=== PATIENT | male | born 1975 | race Caucasian/White ===

== ENCOUNTER 2018-08-24 18:40 | Emergency (ER) | payer SELFPAY ==
[~2018-08-24] VITALS: Ht 170.2 cm; Wt 95.4 kg
[2018-08-24 18:42] VITALS: Ht 170.2 cm; Wt 95.4 kg
[2018-08-24] MEDS ORDERED: morphine 4 MG/ML VIAL IV STA (22:34)
[2018-08-24] MEDS ORDERED: SOD CHLORIDE 0.9% 1,000 ML IV STA (22:34)
[2018-08-24] MEDS ORDERED: ONDANSETRON 4 MG INJ IV STA (22:34)
--- NOTE | 2018-08-24 22:42 | ERD ---
ER Documentation Chief Complaint Chief Complaint EPIGASTRIC PAIN RADIATING TO BACK X'S 3 DAYS HPI This is a 43-year-old male with a history of alcohol abuse. The patient indicates he has not consumed any alcohol for the past 72 hours. He indicates at that time he developed severe epigastric pain. The pain was 10 out of 10 intensity. The pain radiates to his back. The patient states he is never had any similar pain in the past. He is felt nauseous but has not experienced any emesis. He denies any hemoptysis hematemesis or melanotic stools. He denies any lower back pain or lower abdominal pain. The pain is worse when he leans forward and better when he lies supine. He has no chest pain. He has no shortness of breath. He denies any illicit drug use. He denies any history of alcohol withdrawal seizures. He denies any palpitations or tremors ROS All systems reviewed and are negative except as per history of present illness. Medications Home Meds Active Scripts Famotidine* (Pepcid*) 20 Mg Tablet, 20 MG PO BID for 10 Days, TAB Prov:JEN PARISI MD 08/24/18 Ondansetron (Ondansetron Odt) 4 Mg Tab.rapdis, 4 MG PO Q6H PRN for NAUSEA AND/OR VOMITING, #10 TAB Prov:JEN PARISI MD 08/24/18 Allergies Allergies: Coded Allergies: No Known Allergy (Unverified , 08/09/13) PMhx/Soc History of Surgery: No Anesthesia Reaction: No Hx Neurological Disorder: No Hx Respiratory Disorders: No Hx Cardiac Disorders: No Hx Psychiatric Problems: No Hx Miscellaneous Medical Probl: Yes (DX: LOWER EXTREMITY CELLULITIS) Hx Alcohol Use: No Hx Substance Use: No Hx Tobacco Use: Yes Physical Exam Vitals Vital Signs Date Temp Pulse Resp B/P (MAP) Pulse Ox O2 O2 Flow FiO2 Time Delivery Rate 08/24/18 98.3 89 20 159/88 97 18:42 (111) Physical Exam Constitutional:Well-developed. Well-nourished. Patient appears to be in a significant amount discomfort secondary to pain HEENT:Normocephalic. Atraumatic.Pupils were equal round reactive to light. Moist mucous membranes.No tonsillar exudates. Neck: No nuchal rigidity. No lymphadenopathy. No posterior cervical spine tenderness or step-offs. Respiratory: Not using accessory muscles of respiration.Lungs were clear to auscultation bilaterally. No rhonchi. No rales. No wheezing. Cardiovascular: Regular rate regular rhythm.No murmurs. No rubs were appreciated .S1, S2 normal. Distal pulses are palpable 2+ bilaterally. GI: Abdomen was soft. Epigastric tenderness and tenderness in the right upper quadrant. Negative Knapp sign. Non Distended. No pulsatile abdominal masses or bruits. No rebound. No guarding. Bowel sounds were present and normal. Muscle skeletal: Full range of motion of both the upper and lower extremities bilaterally.Normal muscle tone.No assymetrical calf tenderness or swelling. Skin: No petechia, no purpura. No lesions on the palms or the soles of the feet. No maculopapular rash. NEURO: Patient was alert, awake, orientated x3.No facial droop. Gait observed and normal with no ataxia.Speech had regular rate and rhythm. No focal neurological deficits. Result Diagram: 08/24/18223908/24/180 Results 24 hrs Laboratory Tests Test 08/24/18 22:40 White Blood Count 9.0 10^3/ul Red Blood Count 5.15 10^6/ul Hemoglobin 16.0 g/dl Hematocrit 45.8 % Mean Corpuscular Volume 88.9 fl Mean Corpuscular Hemoglobin 31.1 pg Mean Corpuscular Hemoglobin Concent 34.9 g/dl Red Cell Distribution Width 12.6 % Platelet Count 189 10^3/UL Mean Platelet Volume 10.9 fl Immature Granulocytes % 0.400 % Neutrophils % 61.1 % Lymphocytes % 24.9 % Monocytes % 10.4 % Eosinophils % 2.8 % Basophils % 0.4 % Nucleated Red Blood Cells % 0.0 /100WBC Immature Granulocytes # 0.040 10^3/ul Neutrophils # 5.5 10^3/ul Lymphocytes # 2.3 10^3/ul Monocytes # 0.9 10^3/ul Eosinophils # 0.3 10^3/ul Basophils # 0.0 10^3/ul Nucleated Red Blood Cells # 0.0 10^3/ul Prothrombin Time 13.4 Sec Prothrombin Time Ratio 1.0 INR International Normalized Ratio 1.01 Activated Partial Thromboplast Time 29.2 Sec Sodium Level 140 mmol/L Potassium Level 4.1 mmol/L Chloride Level 102 mmol/L Carbon Dioxide Level 28 mmol/L Anion Gap 10 Blood Urea Nitrogen 18 mg/dl Creatinine 0.78 mg/dl Est Glomerular Filtrat Rate mL/min > 60 mL/min Glucose Level 118 mg/dl Calcium Level 9.6 mg/dl Total Bilirubin 0.9 mg/dl Direct Bilirubin 0.00 mg/dl Indirect Bilirubin 0.9 mg/dl Aspartate Amino Transf (AST/SGOT) 89 IU/L Alanine Aminotransferase (ALT/SGPT) 99 IU/L Alkaline Phosphatase 110 IU/L Troponin I < 0.012 ng/ml Total Protein 8.2 g/dl Albumin 4.5 g/dl Globulin 3.70 g/dl Albumin/Globulin Ratio 1.21 Amylase Level 108 U/L Lipase 72 U/L Current Medications Medications Dose Sig/Sanjay Start Time Status Last (Trade) Ordered Route PRN Stop Time Admin Dose Reason Admin Sodium 1,000 ml @ Q1H STAT 08/24/18 DC 08/24/18 Chloride 1,000 mls/hr IV 22:34 08/24/18 22:53 23:33 Morphine 4 mg ONCE STAT 08/24/18 DC 08/24/18 Sulfate IV 22:34 08/24/18 22:53 (morphine) 22:35 Ondansetron 4 mg ONCE STAT 08/24/18 DC 08/24/18 HCl (Zofran IV 22:34 08/24/18 22:54 Inj) 22:35 40 ml ONCE STAT 08/24/18 DC Miscellaneous PO 23:39 08/24/18 Medication 23:40 (Gi Cocktail (2)) Belladonna/ 2 tab ONCE STAT 08/24/18 DC Phenobarbital PO 23:39 08/24/18 () 23:40 Procedures/MDM The patient presented to the emergency department with epigastric pain. My differential diagnosis included but was not limited to abdominal aortic aneurysm, choledocholithiasis, gallstone ileus, renal colic, pyelonephritis, p ancreatitis, peptic ulcer disease, atypical myocardical infarction, mesenteric ischemia, GERD, pulmonary infarction. The patient was placed on a cardiac monitor technician, continuous pulse oximetry and IV access was established by nursing staff. An EKG was obtained to rule out myocardial ischemia. There was mild elevation of LFTs however my suspicion was low for ductal obstruction, cholangitis, cholecys tiitis or hepatitis. Ultrasound of the gallbladder showed no CBD thickening or stones present within the gallbladder 12 Lead EKG tracing ordered and reviewed by myself showed: Normal sinus rhythm of 88 bpm and no arrhythmia. SC interval normal. QRS duration normal. No ST segment elevation. Incomplete right bundle branch block No ST segment depression. No changes consistent with acute ischemia. The patient had no elevation of his pancreatic liver enzymes. I did feel symptoms could be result of alcoholic gastritis. He showed no signs of alcohol withdrawal. His pain improved with analgesic medication IV fluids and a GI cocktail. The patient was discharged home in fair condition. They were instructed to return to the emergency department at any time if there was any worsening of their condition. The patient stated they would follow up with their PCP in the next 24-48 hours to initiate a suitable medication regimen under the care of their PCP as well as to allow their PCP to monitor any drug reactions. The patient was discharged home with prescriptions after they gave informed co nsent to the new medication. They were also fully informed by myself on the adverse effects and adverse drug interactions in order to provide adequate safeguards to prevent possible adverse reactions to medications. Departure Diagnosis: Primary Impression: Epigastric pain Condition: JEN Tian MD Aug 24, 2018 22:42
[2018-08-24] MEDS ORDERED: LIDOCAINE/MYLANTA 40 ML BTL PO STA (23:39)
[2018-08-24] MEDS ORDERED: BELLADONNA/PHENOBARBITAL TAB PO STA (23:39)
[2018-08-24] MEDS ORDERED: FAMO-96 PO (23:43)
[2018-08-24] MEDS ORDERED: ONDA4TAB14 PO (23:43)
[2018-08-25] MEDS ORDERED: LORAZEPAM 2 MG INJ IV ONE
[2018-08-25 00:30] VITALS: BP 134/84; PULSE 63; RESP 19
== END 2018-08-25 00:58 | disposition home or self-care (01) ==
LOC: E/R 18:40
DX: R10.13 Epigastric pain (principal); R11.0 Nausea; Z87.891 Personal history of nicotine dependence
CPT/HCPCS: 76705; 80053; 82150; 83690; 84484; 85025; 85610; 85730; 93005; 96374; 99285; J2270; J2405; J7030

== ENCOUNTER 2018-09-15 16:36 | Emergency (ER) | payer SELFPAY ==
[~2018-09-15] VITALS: Ht 170.2 cm; Wt 96.0 kg
[~2018-09-15 16:36] MED LIST: FAMO-96 PO; ONDA4TAB14 PO; RANI150T35 PO
[2018-09-15 17:22] VITALS: BP 178/94; PULSE 78; RESP 16; Ht 170.2 cm; Wt 96.0 kg
[2018-09-15] MEDS ORDERED: SOD CHLORIDE 0.9% 1,000 ML IV STA (18:15)
[2018-09-15] MEDS ORDERED: morphine 4 MG/ML VIAL IV STA (18:15)
[2018-09-15] MEDS ORDERED: ONDANSETRON 4 MG INJ IV STA (18:15)
[2018-09-15] MEDS ORDERED: LIDOCAINE/MYLANTA 40 ML BTL PO ONE (20:00)
--- NOTE | 2018-09-16 17:04 | ERD ---
ER Documentation Chief Complaint Chief Complaint mid epigastric pain that radiates to back x 2 days HPI 43yo M presents with complaint of epigastric pain radiating to the back and chest x 2 days. Pt notes a hx of gastritis and believes pain d/t gastritis. Pt also notes to have consumed 8 beers prior to onset of pain, and notes hx of etoh. He denies vomiting, nausea, fever, chills, SOB, or dizziness. Pt has taken 3 ibuprofen for pain without improvement. ROS All systems reviewed and are negative except as per history of present illness. Medications Home Meds Active Scripts Ranitidine Hcl* (Zantac*) 150 Mg Tablet, 150 MG PO BID PRN for EPIGASTRIC PAIN, #30 TAB Prov:LEXA TALBOT PA-C 09/15/18 Famotidine* (Pepcid*) 20 Mg Tablet, 20 MG PO BID for 10 Days, TAB Prov:JEN PARISI MD 08/24/18 Ondansetron (Ondansetron Odt) 4 Mg Tab.rapdis, 4 MG PO Q6H PRN for NAUSEA AND/OR VOMITING, #10 TAB Prov:JEN PARISI MD 08/24/18 Allergies Allergies: Coded Allergies: No Known Allergy (Unverified , 08/09/13) PMhx/Soc Medical and Surgical Hx: pt denies Surgical Hx History of Surgery: No Anesthesia Reaction: No Hx Neurological Disorder: No Hx Respiratory Disorders: No Hx Cardiac Disorders: No Hx Psychiatric Problems: No Hx Miscellaneous Medical Probl: Yes (DX: LOWER EXTREMITY CELLULITIS) Hx Alcohol Use: No Hx Substance Use: No Hx Tobacco Use: Yes Smoking Status: Never smoker FmHx Family History: No diabetes, No coronary disease, No other Physical Exam Vitals Vital Signs Date Temp Pulse Resp B/P (MAP) Pulse Ox O2 O2 Flow FiO2 Time Delivery Rate 09/15/18 97.9 78 16 178/94 97 17:22 (122) Physical Exam GENERAL: Alert and coherent. Well appearing, non-toxic. No acute distress. HEAD: Normocephalic, atraumatic. EYES: EOMI. PERRL. No conjunctival injection. No scleral icterus. No Discharge ENT: Nasal passages patent. Moist mucous membranes. No erythema or tonsillar exudates. NECK: Supple. Full range of motion. Trachea midline. No lymphadenopathy. RESPIRATORY: No tachypnea. Clear to auscultation bilaterally. No wheezing, rales or rhonchi. No accessory muscle use. CV: Regular rate and rhythm. No murmurs, rubs, or gallops. ABDOMEN: Soft, non-distended. TTP Epigastrum and RUQ, negative chacko sign. No RLQ tenderness, no mcburney point tenderness. No guarding. No rebound tenderness or rigidity. No masses. Positive bowel sounds in all four quadrants. BACK: Full ROM. No CVA tenderness. EXTREMITIES: No deformity. No clubbing, cyanosis or edema. SKIN: Warm and dry. No obvious rashes, erythema, or petechiae. NEUROLOGIC: Alert and oriented x3. Appropriate speech, mood and affect. Face is symmetric. Speech is normal. CN II-XII intact. Moves all extremities equally. Ambulates with a strong, steady gait Result Diagram: 09/15/187 09/15/18 1847 Results 24 hrs Laboratory Tests Test 09/15/18 18:47 White Blood Count 10.6 10^3/ul Red Blood Count 5.29 10^6/ul Hemoglobin 16.1 g/dl Hematocrit 47.5 % Mean Corpuscular Volume 89.8 fl Mean Corpuscular Hemoglobin 30.4 pg Mean Corpuscular Hemoglobin Concent 33.9 g/dl Red Cell Distribution Width 12.5 % Platelet Count 233 10^3/UL Mean Platelet Volume 11.1 fl Immature Granulocytes % 0.400 % Neutrophils % 62.7 % Lymphocytes % 25.0 % Monocytes % 9.3 % Eosinophils % 2.1 % Basophils % 0.5 % Nucleated Red Blood Cells % 0.0 /100WBC Immature Granulocytes # 0.040 10^3/ul Neutrophils # 6.6 10^3/ul Lymphocytes # 2.7 10^3/ul Monocytes # 1.0 10^3/ul Eosinophils # 0.2 10^3/ul Basophils # 0.1 10^3/ul Nucleated Red Blood Cells # 0.0 10^3/ul Prothrombin Time 12.6 Sec Prothrombin Time Ratio 1.0 INR International Normalized Ratio 0.93 Activated Partial Thromboplast Time 26.8 Sec Sodium Level 144 mmol/L Potassium Level 4.2 mmol/L Chloride Level 103 mmol/L Carbon Dioxide Level 30 mmol/L Anion Gap 11 Blood Urea Nitrogen 20 mg/dl Creatinine 0.92 mg/dl Est Glomerular Filtrat Rate mL/min > 60 mL/min Glucose Level 108 mg/dl Calcium Level 9.7 mg/dl Total Bilirubin 0.7 mg/dl Direct Bilirubin 0.00 mg/dl Indirect Bilirubin 0.7 mg/dl Aspartate Amino Transf (AST/SGOT) 75 IU/L Alanine Aminotransferase (ALT/SGPT) 87 IU/L Alkaline Phosphatase 113 IU/L Troponin I < 0.012 ng/ml Total Protein 8.6 g/dl Albumin 5.2 g/dl Globulin 3.40 g/dl Albumin/Globulin Ratio 1.52 Lipase 112 U/L Current Medications Medications Dose Sig/Sanjay Start Time Status Last (Trade) Ordered Route PRN Stop Time Admin Dose Reason Admin Sodium 1,000 ml @ Q1H STAT 09/15/18 DC 09/15/18 Chloride 1,000 mls/hr IV 18:15 18:51 09/15/18 19:14 Morphine 4 mg ONCE STAT 09/15/18 DC 09/15/18 Sulfate IV 18:15 18:51 (morphine) 09/15/18 18:18 Ondansetron 4 mg ONCE STAT 09/15/18 DC 09/15/18 HCl (Zofran IV 18:15 18:51 Inj) 09/15/18 18:18 40 ml ONCE ONCE 09/15/18 DC 09/15/18 Miscellaneous PO 20:00 20:07 Medication 09/15/18 20:04 (Gi Cocktail (2)) Procedures/MDM EKG: Signed by Dr. Velasquez Rate/Rhythm: Sinus Rhythm at a rate of 62 beats per minute QRS, ST, T-waves: No changes consistent w/ acute ischemia Impression: No evidence of ischemia or arrhythmia PROCEDURE: Chest x-ray FINDINGS: The heart is normal in size. The pulmonary vessels are normal in caliber. The lungs are clear. The costophrenic angles are sharp. The visualized bony thorax is unremarkable. IMPRESSION: No acute cardiopulmonary disease. PROCEDURE: Right upper quadrant ultrasound FINDINGS: The liver is increased in echogenicity and measures 19.5 cm. No focal hepatic masses are seen. The gallbladder is physiologically distended. There is no evidence of gallstones, gallbladder wall thickening, or pericholecystic fluid. The intra and extrahepatic bile ducts are normal in caliber. The common bile duct measures 4.4 mm. Pancreas is not visualized due to overlying bowel gas. Survey views of the right kidney demonstrate no evidence of hydronephrosis or renal calculi. The right kidney measures 11.7 cm. IMPRESSION: 1. No evidence of cholelithiasis or acute cholecystitis. 2. Fatty change of the liver. 3. Mild hepatomegaly MDM: 43yo M presents for evaluation of epigastric pain. VS noted. Patient had extensive evaluation, including laboratory and ancillary studies. Labs and ancillary tests were reviewed and no critical abnormalities were noted. Lipase WNL, mild elevation of LFTS. US Gallbladder showed fatty infiltrate of liver, but no gallbladder involvement. No evidence of infectious etiology, no evidence of metabolic derangement or electrolyte abnormalities. Low suspicion for appendicitis, bowel obstruction, viscous perforation, AAA or other serious surgical pathology. Doubt cardiac etiology. Low suspicion for pulmonary chloe ology. Symptoms likely consistent with gastritis. I have also counseled pt regarding etoh abuse. The patients condition improved during their stay after the administration of medications and serial evaluations with stable vital signs upon re-evaluation. Close PCP follow-up in 24 hours was reinforced and patient was told to return to ED promptly if symptoms are worse, vomiting, fever, other concerns. At this time pt stable for discharge and will receive a prescription to ranitidine, I have counseled regarding 8hr f/u if sx persist or worsen. Pt expressed verbal understanding and agreement to treatment plan. All questions addressed and answered. Departure Diagnosis: Primary Impression: Gastritis Gastritis type: unspecified gastritis Chronicity: unspecified Gastritis bleeding: presence of bleeding unspecified Qualified Codes: K29.70 - Gas tritis, unspecified, without bleeding Additional Impressions: H/O ETOH abuse Fatty liver Condition: Stable Patient Instructions: Non-Alcoholic Fatty Liver Disease (NAFLD), Gastritis (Adult) [facility] Usted se avila hecho un examen mdico de control que le indica que no est en beth condicin que requiera tratamiento urgente en el Departamento de Emergencia. Un estudio ms profundo y el tratamiento de cooper condicin pueden esperar sin ningn riesgo hasta que usted sea atendida/o en el consultorio de cooper mdico o beth clnica. Es responsabilidad suya arreglar beth jeannette para el seguimiento del pinky. MANEJO DE CONDICIONES NO URGENTES EN EL FUTURO 1) Si usted tiene un mdico de atencin primaria: Usted debera llamar a cooper mdico de atencin primaria antes de venir al departamento de emergencia. Despus de las horas de consultorio, cooper doctor o cooper asociado/a est disponible por telfono. El mdico o enfermero de neema en el servicio telefnico puede asesorarle por kathy medio para atender el problema, o pinky contrario se puede programar beth jeannette. 2) Si usted no tiene un mdico de atencin primaria: Llame al mdico o clnica de referencia que aparece abajo branden las horas de consultorio para hacer beth jeannette para que le vean. CLINICAS: [facility] [phone] [facility] [phone] [address] [facility] [phone] [facility] [phone] [facility] [place] [phone] [address] [facility] [phone] LEXA CARRILLO PA-C Sep 16, 2018 17:04
== END 2018-09-15 20:15 | disposition home or self-care (01) ==
LOC: FTE 16:36
DX: K29.70 Gastritis, unspecified, without bleeding (principal); K76.0 Fatty (change of) liver, not elsewhere classified; Z86.59 Personal history of other mental and behavioral disorders; Z87.891 Personal history of nicotine dependence
CPT/HCPCS: 36415; 71045; 76705; 80053; 83690; 84484; 85025; 85610; 85730; 93005; 96361; 96374; 96375; 99285; J2270; J2405; J7030